=== PATIENT | female | born 1995 | race Caucasian/White ===

== ENCOUNTER 2020-09-05 11:21 | Outpatient (REF) | payer OTHER, MEDICAID, SELFPAY | END 2020-09-05 11:22 | disposition home or self-care (01) | LOC: HO.LAB 11:21 | PROVIDERS: Visit Provider Internal Medicine | DX: Z20.822 Contact with and (suspected) exposure to COVID-19 (principal) | CPT/HCPCS: 36415; C9803; U0003 ==

== ENCOUNTER 2021-12-10 09:09 | Outpatient (REF) | payer OTHER, MEDICAID, SELFPAY ==
[2021-12-10 10:32] LABS: MANUAL DIFF FLAG NO
[2021-12-10 10:35] LABS: Basophils Absolute Auto 0.1 X10*3/uL (0.0-0.2); Basophils Percent Auto 0.9 % (0-2); Eosinophils Absolute Auto 0.5 X10*3/uL (0.0-0.4); Hematocrit 41.3 % (37.0-47.0); Lymphocytes Absolute Auto 1.9 X10*3/uL (1.2-4.9); Lymphocytes Percent Auto 32.7 % (20-40); Mean Corpuscular HGB Conc 31.5 g/dl (31.0-35.0); Mean Corpuscular Hemoglobin 27.3 pg (27.0-33.0); Mean Corpuscular Volume 86.6 fL (80.0-98.0); Mean Platelet Volume 11.1 fL (9.4-12.3); Monocytes Absolute Auto 0.4 X10*3/uL (0.1-1.2); Monocytes Percent Auto 6.7 % (2-11); Neutrophils Absolute Auto 2.9 x10*3/uL (2.0-8.3); Neutrophils Percent Auto 51.7 % (45-73); Platelet Count 235 X10*3/uL (160-400); Red Blood Count 4.77 X10*6/uL (4.20-5.50); Red Cell Distribution Width 13.6 % (11.0-16.0); White Blood Count 5.7 X10*3/uL (4.8-10.8)
[2021-12-10 10:48] LABS: Alanine Aminotransferase 14 U/L (0-31); Albumin Level 4.4 g/dL (3.5-5.0); Alkaline Phosphatase 53 U/L (39-117); Anion Gap 12 (12-20); Aspartate Amino Transferase 17 U/L (5-31); Bilirubin Total 0.5 mg/dL (0.0-1.0); Blood Urea Nitrogen 15 mg/dL (9-16); Calcium 9.4 mg/dL (8.4-10.2); Carbon Dioxide 27 mmol/L (22-29); Chloride 109 mmol/L (96-108); Cholesterol 185 mg/dL; Estimated Glomerular Filt Rate > 60; Glucose Fasting 78 mg/dL (60-99); HDL Cholesterol 65 mg/dL; LDL Cholesterol Calculated 113 mg/dl; Potassium 4.6 mmol/L (3.3-5.1); Sodium 143 mmol/L (135-145); Total Protein 7.4 g/dL (6.5-8.0); Triglycerides 37 mg/dL
[2021-12-10 11:06] LABS: TSH reflex Free T4 0.64 uIU/mL (0.32-4.0)
== END 2021-12-10 09:10 | disposition home or self-care (01) ==
LOC: HO.WFDLDS 09:09
PROVIDERS: Visit Provider Family Medicine
DX: Z00.00 Encounter for general adult medical examination without abnormal findings (principal)
CPT/HCPCS: 36415; 80053; 80061; 84443; 85025

== ENCOUNTER 2023-09-02 15:57 | Outpatient (AMB) | payer OTHER, SELFPAY ==
--- NOTE | 2023-09-02 16:02 | MHC.PC.OV ---
Vital Signs 09/02/23 16:03 09/02/23 16:06 Height 4 ft 9 in Weight 100 lb BMI 21.6 BMI Reason not done Patient refused/unable Pulse 69 69 Pulse Source Pulse Oximeter Pulse Oximetry (%) 92 Oxygen Delivery Method Room Air Comment I was unable to get most of patient's vitals, due to she moves around too m Intake Visit Reasons: Extended exam with f/u labs and health maint. Intake Note: Patient is here for extended exam today. Allergies No Known Allergies Allergy (Verified 11/17/22 16:17) Tobacco use date assessed: 05/20/22 HPI Extended exam with f/u labs and health maint. HPI Details 28 y/o female presents for an extended exam with f/u labs. No recent labs to review. 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 [facility] Social History (Updated 05/19/21 @ 10:03 by Karen Gr) Patient Tobacco Use Status: Never used Tobacco e-Cigarette/Vaping Use: Never Used Second Hand Smoke Exposure: No service: No Current occupational status: disabled Current occupational exposures/hazards: No Questionnaire PAULINA-7 AMB Questionnaire PAULINA-7 Date PAULINA - 7 assessed: 05/20/22 Source: Developed by Drs. Slava Nesbitt, Alyx Barragan, Loyd Montesinos and colleagues, with an educational celso from [employer]. Review of Systems Const Denies chills, Denies fatigue, Denies fever(s), Denies headache(s) and Denies weakness Eyes Denies change in vision ENT Denies dizziness, Denies headache(s), Denies hearing loss, Denies nasal congestion, Denies sinus pain, Denies sinus pressure and Denies sore throat Card Denies chest pain, Denies lightheadedness, Denies dyspnea and Denies other (palpitations) Resp Denies cough, Denies dyspnea and Denies wheezing GI Denies abdominal pain, Denies melena, Denies hematochezia, Denies change in bowel habits, Denies dyspepsia and Denies nausea Denies hematuria and Denies dysuria Musc Denies abnormal gait, Denies myalgias, Denies arthralgias, Denies numbness and Denies tingling Skin/Breast Denies rash, Denies unusual bruising and Denies wounds Neuro Denies abnormal gait, Denies dizziness, Denies headache(s), Denies memory loss, Denies numbness, Denies Sensory deficit (Neuro), Denies tingling and Denies weakness Psych Denies anxiety, Denies depression and Denies memory loss Endo Denies cold intolerance, Denies fatigue, Denies heat intolerance, Denies polydipsia and Denies polyuria Oscar/Lymph Denies easy bleeding and Denies easy bruising Aller/Immun Denies wheezing Physical exam (Primary Care) Vital Signs: Last Vital Signs Pulse 69 09/02/23 16:06 Pulse Ox 92 09/02/23 16:03 Oxygen Delivery Method Room Air 09/02/23 16:03 BMI result Body Mass Index 21.6 Tobacco/Smoking Status: Tobacco use Status Tobacco use date assessed 05/20/22 09/02/23 16:04 Patient Tobacco Use Status Never used Tobacco 09/02/23 16:04 e-Cigarette/Vaping Use Never Used 09/02/23 16:04 Const General: no acute distress, well developed, alert and awake Nutritional Appearance: well nourished Orientation/consciousness: patient oriented x3 HENMT Head: Yes normocephalic and Yes atraumatic Ears: hearing grossly normal bilaterally and TM's normal bilaterally General nose exam: Normal external nose present and Normal nares present Mouth: Normal oral and palatal mucosa present and moist mucous membranes Teeth and gingiva: dentition normal Throat: Yes posterior oropharynx normal Eyes General: appearance normal, both eyes and all related structures Pupils: Equal, round and reactive pupils present and Pupil accommodation reflex normal EOM: EOMs intact bilaterally Neck Neck: Yes normal visual inspection, Yes no lymphadenopathy and Yes trachea midline Thyroid: Thyroid normal Carotids: no bruits Lymphatic: no lymphadenopathy noted Chest Chest palpation & inspection: normal inspection of the chest Resp Effort & Inspection: normal respiratory effort Auscultation: clear to auscultation bilaterally Cardio Rate: regular rate Rhythm: regular rhythm Heart sounds: S1 normal heart sound present, S2 normal heart sound present, no gallops, no murmurs and no rubs Bruits: no abdominal aortic bruits and no carotid bruits GI Palpation (GI): No Abdominal aortic bruit present, Soft to palpation, nontender, No hepatosplenomegaly present and No Rebound tenderness present Auscultation: normal bowel sounds General: Yes no CVA tenderness Back/Spine/Pelvis Other: Mild scoliosis Back: no CVA tenderness Cervical Spine: cervical ROM normal and No Cervical spine tenderness Thoracic/Lumbar Spine: thoraco-lumbar ROM normal, No pain with thoraco-lumbar ROM, No thoracic spinal tenderness and No lumbar spinal tenderness Skin Lesions: no lesions Rashes: no rashes Trauma: no lacerations or abrasions Wounds: no wounds Nails: normal Neuro Other: Nonverbal. Spastic quadriplegia. Sitting in wheelchair. General: patient oriented x3 and No gait normal Cranial nerves: Yes Equal, round and reactive pupils present Cognition (Neuro): normal cognition Gait exam (Neuro): gait abnormal and Assisted gait required Gait assisted method: wheelchair bound Motor exam (neuro): strength not 5/5 throughout Sensory Exam: No Sensory deficit (Neuro) Deep tendon reflexes (DTR's): Right patellar reflex intensity grade: 2+ and Left patellar reflex intensity grade: 2+ Extrem General: Yes normal to inspection and No edema Psych Appearance: grossly normal Affect: normal affect Attitude: cooperative Thought process: Normal thought process present Assessment and Plan Assessment & Plan (1) Cerebral palsy: Code(s): G80.9 - Cerebral palsy, unspecified Plan: Stable (2) Mild scoliosis: Code(s): M41.9 - Scoliosis, unspecified Plan: Stable.??No?worsening?angulation (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 Stable (5) Screening for cervical cancer: Code(s): Z12.4 - Encounter for screening for malignant neoplasm of cervix Plan: Patient?had Pap?smear?done?under?general?anesthesia?by?[facility]?supervisor paint roller covers Negative?for?her?squamous?intraepithelial?lesions?or?HPV. Follow-up?every?5?years (6) Screening for breast cancer: Code(s): Z12.39 - Encounter for other screening for malignant neoplasm of breast Plan: During?her?procedure?for?Pap?smear?under?general?anesthesia,?a?breast?exam?was?performed?as?well?and?was?within?normal?limits. (7) Encounter for general adult medical examination without abnormal findings: Code(s): Z00.00 - Encounter for general adult medical examination without abnormal findings Plan: 28-year-old?female?with?spastic?quadriplegia?and?cerebral?palsy?presents?with?mom?for?an?extended?exam Doing?well?today?and?exam?is?stable?with?no?new?concern Ordered?labs?which?they?can?get?done?fasting?at?their?convenience?and?we?can?review?these?by?telemedicine Orders: Orders Comprehensive [place]. Panel Fast Today Z00.00 - Encounter for general adult medical examination without abnormal findings Complete Blood Count Auto Diff Today Z00.00 - Encounter for general adult medical examination without abnormal findings Lipid Panel Today Z00.00 - Encounter for general adult medical examination without abnormal findings TSH reflex Free T4 Today Z00.00 - Encounter for general adult medical examination without abnormal findings UA and rflx microscopic Today Z00.00 - Encounter for general adult medical examination without abnormal findings Vitamin B12 and Folate Today E53.8 - Deficiency of other specified B group vitamins Hemoglobin A1c Today R73.01 - Impaired fasting glucose Microalbumin, Random (w Creat) Today I10 - Essential (primary) hypertension Vitamin D 25-OH Total Today E55.9 - Vitamin D deficiency, unspecified Coding Level of Care Code Est Pt Level 4 (04344) Diagnoses Cerebral palsy G80.9 Mild scoliosis M41.9 Spastic quadriplegia G82.50 Nonverbal R47.01 Screening for cervical cancer Z12.4 Screening for breast cancer Z12.39 Encounter for general adult medical examination without abnormal findings Z00.00
[2023-09-02 16:03] VITALS: PULSE 69; O2SAT 92; BMI 21.6
[2023-09-02 16:06] VITALS: PULSE 69
== END 2023-09-02 16:29 | disposition home or self-care (01) ==
PROVIDERS: PCP Family Medicine; Visit Provider Family Medicine
DX: G80.9 Cerebral palsy, unspecified (principal); M41.9 Scoliosis, unspecified; R47.01 Aphasia; Z12.4 Encounter for screening for malignant neoplasm of cervix; Z12.39 Encounter for other screening for malignant neoplasm of breast; Z00.00 Encounter for general adult medical examination without abnormal findings
CPT/HCPCS: 99214

== ENCOUNTER 2024-12-17 08:15 | Outpatient (AMB) | payer OTHER, SELFPAY ==
--- NOTE | 2024-12-17 08:30 | A.OFFPC_ITS ---
Vital Signs 12/17/24 08:37 Height 4 ft 11 in BMI Reason not done Patient refused/unable BP 110/68 Blood Pressure Location Lt brachial Intake Visit Reasons: f/u chronic conditions Intake Note: Follow up Managing Jeweler Required: No Allergies No Known Allergies Allergy (Verified 12/17/24 08:33) Medication List - Last Reconciled 12/17/24 by Demetrius Cottrell MD glycerin (adult) (Fleet Glycerin (Adult) rectal suppository) 1 supp NM DAILY PRN miscellaneous medical supply AFO, Bilateral, Daily As directed. 999 days. 1 Pair miscellaneous medical supply Wheelchair. Daily As directed. 999 days. Tobacco use date assessed: 12/17/24 Dental Screening Dental Screen Date: 12/17/24 Did you have a dental visit in the last 12 months?: Yes Did you have a dental problem in the last 6 months where you did not have access to dental care?: No Was dental information given to patient?: Patient has dentist HPI f/u chronic conditions HPI Details Patient?presents?with?mom.??She?is?nonverbal. Mom?has?video?of?patient?having?convulsion-like/seizure-like?activity. She?says?this?recurs?randomly. Unclear?what?is?triggering?this. Patient?reorient?with?contact/touch. Patient?used?to?have?seizures?as?a?young?child.??Also?had?neurologist?but?no?jamila alice?does. [facility] Social History (Updated 05/19/21 @ 10:03 by Metabar) Housing: House (with parents and brother) Patient Tobacco Use Status: Never used Tobacco e-Cigarette/Vaping Use: Never Used Second Hand Smoke Exposure: No service: No Current occupational status: disabled Current occupational exposures/hazards: No Cognitive needs: Yes (Needs care 24/03) Hearing needs: No Vision needs: Yes (Having trouble finding eye doctor in the area. Lazy right eye.) Questionnaire PHQ-9 Over the last 2 weeks, how often have you been bothered by any of the following problems? 1. Little interest or pleasure in doing things: not at all 2. Feeling down, depressed, or hopeless: not at all 3. Trouble falling or staying asleep, or sleeping too much: not at all 4. Feeling tired or having little energy: not at all 5. Poor appetite or overeating: not at all 6. Feeling bad about yourself - or that you are a failure or have let yourself or your family down: not at all 7. Trouble concentrating on things, such as reading the newspaper or watching television: nearly every day 8. Moving or speaking so slowly that other people could have noticed. Or the opposite - being so fidgety or restless that you have been moving around a lot more than usual: nearly every day 9. Thoughts that you would be better off or of hurting yourself in some way: not at all Total score: 6 Depression Screening Interpretation: Positive Depression Screening Done: Yes 51128 - PHQ-9 Billing: Yes Source: Developed by Drs. Slava Nesbitt, Alyx Barragan, Loyd Montesinos and colleagues, with an educational celso from [employer]. Thrive Questionnaire Date Thrive assessed: 12/12/24 I am a: Patient What is your living situation today?: I have a steady place to live Within the past 12 months, did the food you bought not last and you didn't have the money to get more?: Never true Within the past 12 months, did you worry whether your food would run out before you got money to buy more?: Never true Do you have trouble paying for medicines?: No Do you have trouble getting transportation to medical appointments?: No Do you have trouble paying your heating and electricity bill?: No Do you have trouble taking care of your child, family member or friend?: I choose not to answer this question Do you have trouble with day-to-day activities such as bathing, preparing meals, shopping, managing finances, etc.?: I choose not to answer this question Are you currently unemployed and looking for a job?: I choose not to answer this question Are you interested in more education?: I choose not to answer this question THRIVE Score: 0 AUDIT C Alcohol Use Questionnaire (AUDIT-C) 1. How often do you have a drink containing alcohol?: Never Total Score: 0 PAULINA-7 AMB Questionnaire PAULINA-7 Date PAULINA - 7 assessed: 12/17/24 Feeling nervous, anxious, or on edge: 0 = Not at all Not being able to stop or control worryin = Not at all Worrying too much about different things: 0 = Not at all Trouble relaxin = Not at all Being so restless that it is hard to sit still: 0 = Not at all Becoming easily annoyed or irritable: 1 = Several days Feeling afraid as if something awful might happen: 0 = Not at all Total PAULINA-7 score (0-4 normal; 5-9 mild; 10-14 moderate; 15-21 severe): 1 Source: Developed by Drs. Slava Nesbitt, Alyx Barragan, Loyd Montesinos and colleagues, with an educational celso from [employer]. PAULINA-7 Assessment Billing PAULINA-7 Assessment Tool: PAULINA-7 Assessment 99694 Review of Systems Const Denies chills, Denies fatigue, Denies fever(s), Denies headache(s) and Denies weakness ENT Denies dizziness and Denies headache(s) Card Denies dyspnea Resp Denies cough, Denies dyspnea, Denies wheezing and Denies other ( shortness of breath) Musc Denies numbness and Denies tingling Neuro Details: See?HPI Denies dizziness, Denies headache(s), Denies numbness, Denies tingling, Denies paresthesias and Denies weakness Psych Denies anxiety and Denies depression Endo Denies fatigue Aller/Immun Denies wheezing Physical exam (Primary Care) Vital Signs: Last Vital Signs BP 110/68 12/17/24 08:37 Tobacco/Smoking Status: Tobacco use Status Tobacco use date assessed 12/17/24 12/17/24 08:41 Patient Tobacco Use Status Never used Tobacco 12/17/24 08:31 e-Cigarette/Vaping Use Never Used 12/17/24 08:31 PHQ-9: PHQ-9 Score PHQ-9: Total score 6 12/17/24 08:41 Depression Screening Interpretation: Positive Thrive Assessment: Date of Thrive Assessment Date Thrive assessed 12/12/24 12/17/24 08:31 Const General: no acute distress and well developed Nutritional Appearance: well nourished Orientation/consciousness: patient oriented x3 HENMT Head: Yes normocephalic and Yes atraumatic Eyes General: appearance normal, both eyes and all related structures Pupils: Equal, round and reactive pupils present EOM: EOMs intact bilaterally Resp Effort & Inspection: normal respiratory effort Neuro Other: Wheelchair-bound Spastic?quadriplegia General: patient oriented x3 Cranial nerves: Yes Equal, round and reactive pupils present Psych Affect: normal affect Coding Level of Care Code Est Pt Level 3 (33878) Diagnoses Cerebral palsy G80.9 Convulsions R56.9 Additional Codes PAULINA-7 Assessment Billing - PAULINA-7 Assessment Tool: PAULINA-7 Assessment 88036 ([id number]) PHQ-9 - 57786 - PHQ-9 Billing: Yes ([id number]) Assessment & Plan Assessment & Plan (1) Cerebral palsy: Code(s): G80.9 - Cerebral palsy, unspecified Category: Medical (2) Convulsions: Code(s): R56.9 - Unspecified convulsions Category: Medical Plan 29-year-old?female?with?cerebral?probably,?spastic?quadriplegia?and?nonverbal. Now?displaying?new?convulsion?like?activity. Unclear?if?these?are?seizures?as?she?seems?to?immediately?reorient with touch/contact. Will?refer?to?Neurology Also?checking?labs?and?will?review?by?telemedicine?a?couple?of?weeks. Orders: Orders Comprehensive [place]. Panel Fast Today Z00.00 - Encounter for general adult medical examination without abnormal findings Lipid Panel Today Z00.00 - Encounter for general adult medical examination without abnormal findings Vitamin D 25-OH Total Today E55.9 - Vitamin D deficiency, unspecified Complete Blood Count Auto Diff Today Z00.00 - Encounter for general adult medical examination without abnormal findings TSH reflex Free T4 Today Z00.00 - Encounter for general adult medical examination without abnormal findings Vitamin B12 and Folate Today E53.8 - Deficiency of other specified B group vitamins Referrals Neurology Referral G80.9 - Cerebral palsy, unspecified, G82.50 - Quadriplegia, unspecified, R47.01 - Aphasia, R56.9 - Unspecified convulsions
[2024-12-17 08:37] VITALS: BP 110/68
== END 2024-12-17 08:57 | disposition home or self-care (01) ==
LOC: HO.HMCFM 08:15
PROVIDERS: PCP Family Medicine; Visit Provider Family Medicine
DX: G80.9 Cerebral palsy, unspecified (principal); R56.9 Unspecified convulsions

== ENCOUNTER → 2024-12-17 08:15 | Outpatient (BNVA) | payer OTHER, SELFPAY | PROVIDERS: PCP Family Medicine; Visit Provider Family Medicine | DX: Z13.89 Encounter for screening for other disorder (principal) | CPT/HCPCS: 96127; 99212 ==

== ENCOUNTER 2024-12-17 09:06 | Outpatient (REF) | payer OTHER, SELFPAY ==
--- OUTSIDE RECORDS SUMMARY | 2024-12-17 09:16 | XMS_ITS | Encounter Summary ---
Author Organization [facility] Address [address] [place] [address] Phone Care Team Providers Care Distributor Advertising Material Name Role Phone Alexus Johnson MD Primary Care Provider Encounter Details Date Type Department Care Team (Late st Contact Info) Description 04/14/2017 Conversion Encounter [facility] [place] [address] [place] [address] Social History Tobacco Use Types Packs/Day Years Used Date Smoking Tobacco: Never Comments:Never smoker Comments Unknown Sex and Gender Information Value Date Recorded Sex Assigned at Not on file Legal Sex Female 4:56 PM EDT Gender Identity Not on file Sexual Orientation Not on file documented as of this encounter Plan of Treatment Not on file documented as of this encounter Visit Diagnoses Not on filedocumented in this encounter Care Teams Distributor Advertising Material Relationship Specialty Start Date End Date Alexus Johnson MD [address] [place] [address] PCP - General 04/08/17 12/06/22 documented as of this encounter
--- OUTSIDE RECORDS SUMMARY | 2024-12-17 09:16 | XMS_ITS | Encounter Summary ---
Author Organization [facility] Address [address] [place] [phone] Phone Care Team Providers Care Die Machine Operator Name Role Phone Alexus Johnson MD Primary Care Provider Encounter Details Date Type Department Care Team (Late st Contact Info) Description 04/13/2013 Documentation [facility] [place] [address] [place], [place] [phone] Family Medicine, Physician [address] [place], [place] [phone] Social History Tobacco Use Types Packs/Day Years Used Date Smoking Tobacco: Never Assessed Comments Unknown Sex and Gender Information Value Date Recorded Sex Assigned at Not on file Legal Sex Female 4:56 PM EDT Gender Identity Not on file Sexual Orientation Not on file documented as of this encounter Plan of Treatment Not on file documented as of this encounter Visit Diagnoses Not on filedocumented in this encounter Care Teams Die Machine Operator Relationship Specialty Start Date End Date Alexus Johnson MD [address] [place] [address] [place] [id number] PCP - General 04/08/17 12/06/22 documented as of this encounter
--- OUTSIDE RECORDS SUMMARY | 2024-12-17 09:16 | XMS_ITS | Encounter Summary ---
Author Organization [facility] Address [address] [place] [phone] Phone Care Team Providers Care Welder Manufacture Name Role Phone Alexus Johnson MD Primary Care Provider Encounter Details Date Type Department Care Team (Late st Contact Info) Description 04/13/2013 Documentation [facility] [place] [address] [place], [place] [phone] Family Medicine, Physician [address] [place], [place] [phone] Social History Tobacco Use Types Packs/Day Years [...] on filedocumented in this encounter Care Teams Welder Manufacture Relationship Specialty Start Date End Date Alexus Johnson MD [address] [place] [address] [place] [id number] PCP - General 04/08/17 12/06/22 documented as of this encounter
--- OUTSIDE RECORDS SUMMARY | 2024-12-17 09:16 | XMS_ITS | Clinical Summary ---
Author Organization [facility] Address [address] [place] [phone] Phone Care Team Providers Care Business Development Representative Name Role Phone Unavailable Primary Care Provider Unavailabl e Immunizations Immunization Administration Dates Next Due DTP 09/20/1995, 5,1994, 994 DTaP 5 03/20/1999 HPV, Quadrivalent 09/28/2013,05/28/2013,01/06/20 13 Hep A, Adult 12/26/2014 Hep B, ped/adol 1994,1994,1994 Hib (PRP-T) 06/22/1995, 5,1994, 994 IPV 03/20/1999, 6,1994, 994,1994 Influenza Split 05/28/2013, 2,07/05/2011, 010 Influenza, injectable, quadrivalent 06/27/2014 Influenza, injectable, trivalent 009,06/21/2008,06/19/2007, 006,06/18/2005,06/25/2004,08/12/2003 MMR 05/30/2000,06/22/1995 Meningococcal Conj (Menactra) MCV4P 02/17/2007 Tdap 07/15/2006 Varicella 11/28/2009,04/03/1996 Zoster 06/27/2014 Family History Relation Name Status Comments Brother Alive Brother: Alive and well, ADD/ADHD Father Alive Father: ADD/ADH D Mother Alive Mother: Alive a nd well Other Family history of Cancer, breast, Family history of Seizure disorder, Family history of Hyperlipidemia, Family history of Sudden /NE under age 55 Paternal Grandfather Buck naranjo grandfather: Cancer -lymphoma Paternal Grandmother Buck naranjo grandmother: Multiple sclerosis Social History Tobacco Use Types Packs/Day Years Used Date Smoking Tobacco: Never Comments:Never smoker Comments Unknown Sex and Gender Information Value Date Recorded Sex Assigned at Not on file Legal Sex Female 4:56 PM EDT Gender Identity Not on file Sexual Orientation Not on file Last Filed Vital Signs Vital Sign Reading Time Taken Comments Blood Pressure 112/70 12/26/2014 12:00 AM EDT Pulse 82 12/26/2014 12:00 AM EDT Temperature 36.4 ??C (97.6 ??F) 03/11/2015 12:00 AM E DT Respiratory Rate - - Oxygen Saturation 97% 02/13/2010 12:00 AM EDT Inhaled Oxygen Concentration - - Weight 47.2 kg (104 lb) 12/26/2014 12:00 AM EDT Height 143.5 cm (4' 8.5 ) 12/29/2012 12:00 AM ED T Body Mass Index 22.91 12/29/2012 12:00 AM EDT Plan of Treatment Health Maintenance Due Date Last Done Comments DTaP,Tdap,and Td Vaccines (7 - Td or Tdap) 07/15/2016 07/15/2006, 03/20/1999, 09/20/1995, Additional history exists Influenza Vaccines (#1) 2024 06/27/20 14, 05/28/2013, 05/11/2012, Additional history exists COVID-19 Vaccine ( season) 2024 Hepatitis B Vaccines Completed 1994, 1994, 1994 HIB Vaccines Completed 06/22/1995, 08/31, 1994, Additional history exists IPV Vaccines Completed 03/20/1999, 08/30, 1994, Additional history exists MMR Vaccines Completed 05/30/2000, 06/22/1995 Meningococcal Vaccine Aged Out 02/17/2007 No jamila alice eligible based on patient's age to complete this topic HPV Vaccines Completed 09/28/2013, 05/01, 01/05/2013 Varicella Vaccines Completed 06/27/2014, 0 11/28/2009, 04/03/1996 Hepatitis A Vaccines Aged Out 12/26/2014 No long er eligible based on patient's age to complete this topic Men B Vaccine Aged Out No longer elig ible based on patient's age to complete this topic Pneumococcal Vaccine Aged Out No long er eligible based on patient's age to complete this topic
--- OUTSIDE RECORDS SUMMARY | 2024-12-17 09:16 | XMS_ITS | Encounter Summary ---
Author Organization [facility] Address [address] [place] [phone] Phone Care Team Providers Care Tank Riveter Name Role Phone Alexus Johnson MD Primary Care Provider Encounter Details Date Type Department Care Team (Late st Contact Info) Description 08/16/2012 Documentation [facility] [place] Family Medicine [address] [place], [place] [phone] Family Medicine, Physician [address] [place], [place] [phone] Social History Tobacco Use Types Packs/Day Years [...] on filedocumented in this encounter Care Teams Tank Riveter Relationship Specialty Start Date End Date Alexus Johnson MD [address] [place] [address] [place] [id number] PCP - General 04/08/17 12/06/22 documented as of this encounter
--- OUTSIDE RECORDS SUMMARY | 2024-12-17 09:16 | XMS_ITS | Encounter Summary ---
Author Organization [facility] Address [address] [place] [address] Phone Care Team Providers Care Veterinary Medicine Teacher Name Role Phone Alexus Johnson MD Primary Care Provider Encounter Details Date Type Department Care Team (Late st Contact Info) Description 10/29/2011 Documentation [facility] [place] [address] [place], [place] [phone] Family Medicine, Physician [address] [place], [place] [phone] Social History Tobacco Use Types Packs/Day Years [...] on filedocumented in this encounter Care Teams Veterinary Medicine Teacher Relationship Specialty Start Date End Date Alexus Johnson MD [address] [place] [address] [place] [phone] PCP - General 04/08/17 12/06/22 documented as of this encounter
--- OUTSIDE RECORDS SUMMARY | 2024-12-17 09:16 | XMS_ITS | Encounter Summary ---
Author Organization [facility] Address [address] [place] [address] Phone Care Team Providers Care Hydration Plant Operator Name Role Phone Alexus Johnson MD Primary Care Provider Encounter Details Date Type Department Care Team (Late st Contact Info) Description 06/28/2011 Documentation [facility] [place] [address] [place], [place] [phone] Family Medicine, Physician [address] [place], [place] [phone] Social History Tobacco Use Types Packs/Day Years [...] on filedocumented in this encounter Care Teams Hydration Plant Operator Relationship Specialty Start Date End Date Alexus Johnson MD [address] [place] [address] [place] [id number] PCP - General 04/08/17 12/06/22 documented as of this encounter
[2024-12-17 10:55] LABS: MANUAL DIFF FLAG NO
[2024-12-17 11:00] LABS: Basophils Absolute Auto 0.1 X10*3/uL (0.0-0.2); Basophils Percent Auto 1.4 % (0-2); Eosinophils Absolute Auto 0.3 X10*3/uL (0.0-0.4); Eosinophils Percent Auto 5.5 % (0-4); Hematocrit 39.7 % (37.0-47.0); Hemoglobin 12.4 g/dl (12.0-16.0); Imm Gran Abs Auto 0.01 X10*3/uL (0.00-0.03); Imm Gran Pct Auto 0.2 % (0.0-0.4); Lymphocytes Absolute Auto 2.3 X10*3/uL (1.2-4.9); Mean Corpuscular HGB Conc 31.2 g/dl (31.0-35.0); Mean Corpuscular Hemoglobin 27.3 pg (27.0-33.0); Mean Corpuscular Volume 87.3 fL (80.0-98.0); Mean Platelet Volume 11.3 fL (9.4-12.3); Monocytes Absolute Auto 0.3 X10*3/uL (0.1-1.2); Monocytes Percent Auto 6.5 % (2-11); Neutrophils Absolute Auto 2.1 x10*3/uL (2.0-8.3); Neutrophils Percent Auto 40.4 % (45-73); Platelet Count 252 X10*3/uL (160-400); Red Blood Count 4.55 X10*6/uL (4.20-5.50); Red Cell Distribution Width 13.6 % (11.0-16.0); White Blood Count 5.1 X10*3/uL (4.8-10.8)
[2024-12-17 11:18] LABS: Alanine Aminotransferase 20 U/L (0-31); Albumin Level 4.3 g/dL (3.5-5.0); Alkaline Phosphatase 57 U/L (39-117); Anion Gap 11 (12-20); Aspartate Amino Transferase 21 U/L (5-31); Bilirubin Total 0.4 mg/dL (0.0-1.0); Blood Urea Nitrogen 15 mg/dL (9-16); Carbon Dioxide 28 mmol/L (22-29); Chloride 108 mmol/L (96-108); Cholesterol 172 mg/dL (<200); Estimated Glomerular Filt Rate > 60; Glucose Fasting 81 mg/dL (60-99); HDL Cholesterol 65 mg/dL (>40); LDL Cholesterol Calculated 98 mg/dL (<100); Potassium 3.7 mmol/L (3.3-5.1); Sodium 143 mmol/L (135-145); Triglycerides 48 mg/dL (<150)
[2024-12-17 11:36] LABS: TSH reflex Free T4 0.82 uIU/mL (0.32-4.0); Vitamin D 25-OH Total 40.5 ng/mL (>30)
[2024-12-17 11:44] LABS: Folate 11.3 ng/mL (> or = 4.0); Vitamin B12 476 pg/mL (200-900)
== END 2024-12-17 09:07 | disposition home or self-care (01) ==
LOC: HO.WFDLDS 09:06
PROVIDERS: Visit Provider Family Medicine
DX: Z00.00 Encounter for general adult medical examination without abnormal findings (principal); E55.9 Vitamin D deficiency, unspecified; E53.8 Deficiency of other specified B group vitamins
CPT/HCPCS: 36415; 80053; 80061; 82306; 82607; 82746; 84443; 85025; 96127; 99212

== ENCOUNTER 2025-01-02 11:14 | Outpatient (AMB) | payer OTHER, SELFPAY ==
--- NOTE | 2025-01-02 11:17 | A.OFFPC_ITS ---
Intake Visit Reasons: f/u Labs Plug Wirer Required: No Allergies No Known Allergies Allergy (Verified 01/02/25 11:18) Tobacco use date assessed: 12/17/24 Dental Screening Dental Screen Date: 12/17/24 HPI f/u Labs HPI Details 29 y/o female presents to f/u labs via [employer]. Pt has had convulsive-like activity - ensuring they have an appt. for Neurology. Labs drawn 12/17/24. Reviewed labs with pt's mother. Triglycerides 48. TC 172. LDL 98. HDL 65. Vitamin D 40.5. Her labs are fine. HPI Comments History of Present Illness Details Documentation assistance for Demetrius Cottrell MD, was provided by Kieran Saunders,? [employer] on 01/02/2025 at 12:50 PM EST. I, Dr. Cottrell, have read, observed, and verified documentation. ? PFSH Social History (Updated 05/19/21 @ 10:03 by [email or web address]) Housing: House (with parents and brother) Patient Tobacco Use Status: Never used Tobacco e-Cigarette/Vaping Use: Never Used Second Hand Smoke Exposure: No service: No Current occupational status: disabled Current occupational exposures/hazards: No Cognitive needs: Yes (Needs care 24/03) Hearing needs: No Vision needs: Yes (Having trouble finding eye doctor in the area. Lazy right eye.) Questionnaire Thrive Questionnaire Date Thrive assessed: 12/12/24 PAULINA-7 AMB Questionnaire PAULINA-7 Date PAULINA - 7 assessed: 12/17/24 Source: Developed by Drs. Slava Nesbitt, Alyx Barragan, Loyd Montesinos and colleagues, with an educational celso from [employer]. Review of Systems Const Denies chills, Denies fatigue, Denies fever(s), Denies headache(s) and Denies weakness ENT Denies dizziness and Denies headache(s) Card Denies dyspnea Resp Denies cough, Denies dyspnea, Denies wheezing and Denies other (shortness of breath) Musc Denies numbness and Denies tingling Neuro Denies dizziness, Denies headache(s), Denies numbness, Denies tingling and Denies weakness Psych Denies anxiety and Denies depression Endo Denies fatigue Aller/Immun Denies wheezing Physical exam (Primary Care) Tobacco/Smoking Status: Tobacco use Status Tobacco use date assessed 12/17/24 01/02/25 11:19 Patient Tobacco Use Status Never used Tobacco 01/02/25 11:19 e-Cigarette/Vaping Use Never Used 01/02/25 11:19 Thrive Assessment: Date of Thrive Assessment Date Thrive assessed 12/12/24 01/02/25 11:19 Telehealth Telehealth Telehealth Platform: Telephone Location of provider rendering services: practice address Location of patient: address on file Patient Identification confirmed using: Name, : Yes Telehealth method: voice only Patient verbally consented to treatment: Yes Patient verbally consented to billing insurance company: Yes Patient informed of any privacy concerns related to visit: Yes Minutes spent on Phone/Video with Pt.: 15 Coding Level of Care Code Tele Est Pt Level 2 (29828) Diagnoses Convulsions R56.9 Assessment & Plan Assessment & Plan (1) Convulsions: Code(s): R56.9 - Unspecified convulsions Category: Medical Plan: 29-year-old?female?with?cerebral?palsy?and?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 She?seems?quickly?reoriented?with?touch. Reviewed?labs?with?mom.??Lab?work?is?unremarkable. Had?referred?patient?to [facility] ate?neurology?but?mom?says?she?has?not?contacted?yet.??Will?ask?my?office?to work?on?getting?her?scheduled.
--- OUTSIDE RECORDS SUMMARY | 2025-01-02 12:42 | XMS_ITS | Encounter Summary ---
Author Organization [facility] Address [address] [place] [address] Phone Care Team Providers Care Experimental Mechanic [employer] Name Role Phone Alexus Johnson MD Primary Care Provider Encounter Details Date Type Department Care Team (Late st Contact Info) Description 08/16/2012 [place] [facility] [place] [address] [place], [place] [phone] Family Medicine, Physician [address] [place], [place] [phone] Social History Tobacco Use Types Packs/Day Years [...] on filedocumented in this encounter Care Teams Experimental Mechanic Outboard Motors Relationship Specialty Start Date End Date Alexus Johnson MD [address] [place] [address] [place] [id number] PCP - General 04/08/17 12/06/22 documented as of this encounter
--- OUTSIDE RECORDS SUMMARY | 2025-01-02 12:42 | XMS_ITS | Encounter Summary ---
Author Organization [facility] Address [address] [place] [address] Phone Care Team Providers Care Relocation Services Specialist Name Role Phone Alexus Johnson MD Primary Care Provider [phone] Encounter Details Date Type Department Care Team (Late st Contact Info) Description 10/29/2011 Documentation [facility] [place] [address] [place], [place] [phone] Family Medicine, Physician [address] [place], [place] [phone] Social History Tobacco Use Types Packs/Day Years [...] on filedocumented in this encounter Care Teams Relocation Services Specialist Relationship Specialty Start Date End Date Alexus Johnson MD [address] [place] [address] [place] [phone] PCP - General 04/08/17 12/06/22 documented as of this encounter
--- OUTSIDE RECORDS SUMMARY | 2025-01-02 12:42 | XMS_ITS | Clinical Summary ---
Author Organization [facility] Address [address] [place] [address] Phone Care Team Providers Care Oracle Fusion Consultant Name Role Phone Unavailable Primary Care Provider [...] history of Hyperlipidemia, Family history of Sudden /[place] under age 55 Paternal Grandfather Buck naranjo [...]
--- OUTSIDE RECORDS SUMMARY | 2025-01-02 12:42 | XMS_ITS | Encounter Summary ---
Author Organization [facility] Address [address] [place] [address] Phone Care Team Providers Care Paper Tube Machine Operator Name Role Phone Alexus Johnsno MD Primary Care Provider Encounter Details Date Type Department Care Team (Late st Contact Info) Description 04/13/2013 Documentation [facility] [place] [address] [place], [place] [phone] Family Medicine, Physician [address] [place], [place] [phone] Social History Tobacco Use Types Packs/Day Years [...] on filedocumented in this encounter Care Teams Paper Tube Machine Operator Relationship Specialty Start Date End Date Alexus Johnson MD [address] [place] [address] [place] [phone] PCP - General 04/08/17 12/06/22 documented as of this encounter
--- OUTSIDE RECORDS SUMMARY | 2025-01-02 12:42 | XMS_ITS | Encounter Summary ---
Author Organization [facility] Address [address] [place] [address] Phone Care Team Providers Care Maxillofacial Pathology Name Role Phone Alexus Johnson MD Primary Care Provider Encounter Details Date Type Department Care Team (Late st Contact Info) Description 06/28/2011 Documentation [facility] [place] [address] [place], [place] [phone] Family Medicine, Physician [address] [place], [place] [phone] Social History Tobacco Use Types Packs/Day Years [...] on filedocumented in this encounter Care Teams Maxillofacial Pathology Relationship Specialty Start Date End Date Alexus Johnson MD [address] [place] [address] [place] [phone] PCP - General 04/08/17 12/06/22 documented as of this encounter
--- OUTSIDE RECORDS SUMMARY | 2025-01-02 12:42 | XMS_ITS | Encounter Summary ---
Author Organization [facility] Address [address] [place] [address] Phone Care Team Providers Care Laborer Vegetable Farm Name Role Phone Alexus Johnson MD Primary Care Provider Encounter Details Date Type Department Care Team (Late st Contact Info) Description 04/13/2013 Documentation [facility] [place] [address] [place], [place] [phone] Family Medicine, Physician [address] [place], [place] [phone] Social History Tobacco Use Types Packs/Day Years [...] on filedocumented in this encounter Care Teams Laborer Vegetable Farm Relationship Specialty Start Date End Date Alexus Johnson MD [address] [place] [address] [place] [phone] PCP - General 04/08/17 12/06/22 documented as of this encounter
--- OUTSIDE RECORDS SUMMARY | 2025-01-02 12:42 | XMS_ITS | Encounter Summary ---
Author Organization [facility] Address [address] [place] [address] Phone Care Team Providers Care Managing Consultant Name Role Phone Alexus Johnson MD Primary Care Provider Encounter Details Date Type Department Care Team (Late st Contact Info) Description 04/14/2017 Conversion Encounter [facility] [place] [address] [place] [address] Social History Tobacco Use Types Packs/Day Years [...] on filedocumented in this encounter Care Teams Managing Consultant Relationship Specialty Start Date End Date Alexus Johnson MD [address] [place] [address] PCP - General 04/08/17 12/06/22 documented as of this encounter
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
== END 2025-01-02 13:30 | disposition home or self-care (01) ==
LOC: HO.HMCFM 11:14
PROVIDERS: PCP Family Medicine; Visit Provider Family Medicine
DX: R56.9 Unspecified convulsions (principal)

== ENCOUNTER → 2025-01-02 11:14 | Outpatient (BNVA) | payer OTHER, SELFPAY | PROVIDERS: PCP Family Medicine; Visit Provider Family Medicine | DX: Z13.89 Encounter for screening for other disorder (principal) ==

== ENCOUNTER 2025-02-12 09:42 | Outpatient (AMB) | payer OTHER, SELFPAY ==
--- NOTE | 2025-02-12 09:45 | AM.OFFWIN_ITS ---
Intake Vital Signs 02/12/25 09:49 Height 4 ft 11 in BMI Reason not done Patient refused/unable Temp 97.1 F Temp Source Oral Comment unable to do vital do to patient not able to stay still Intake Visit Reasons: swelling in the face/eyes Intake Note: Patient c/o itching eyes, red eyes, not eating, and left rubbing eyes since Tuesday Patient Tobacco Use Status: Never used Tobacco Allergies No Known Allergies Allergy (Verified 02/12/25 10:04) Medication List - Last Reconciled 02/12/25 by EMILY Denis-BC glycerin (adult) (Fleet Glycerin (Adult) rectal suppository) 1 supp [place] DAILY PRN miscellaneous medical supply AFO, Bilateral, Daily As directed. 999 days. 1 Pair miscellaneous medical supply Wheelchair. Daily As directed. 999 days. Do you need a note to return to daycare/school/sports/work: No HPI HPI Comments History of Present Illness Details History - The patient is a 29-year-old female wi th cerebral palsy, nonverbal, here w/ Mom who provides HPI, presenting with facial and ocular swelling with ocular itching and redness. Left eye - Symptoms began on Tuesday, worsening over time. - Nasal discharge is clear; slight cough is non-productive. - Absence of fever with recorded tempera ture of 97.1?F. - Appetite reduced but normal urinary an d bowel patterns maintained. - Recently visited outdoor mont[place]; multip le insect bites noted. - No known drug allergies and no similar symptoms in close contacts. Review of Systems - Eyes: Reports redness and itching, wor se on the left. - Respiratory: Denies productive cough, reports minor dry cough. - Gastrointestinal: Reports loss of appe tite. - Skin: Reports facial swelling and rece nt bug bites. - Constitutional: Denies fever, normal u rinary and bowel patterns reported. - Others: Denies contact with sick indiv iduals. Physical Exam General: Awake, alert. No apparent distress Eyes: Left conjunctival injection, mild upper and lower lid edema, no drainage, Right conjunctiva clear, no lid edema, rubbing L eye during exam Nose: Nares patent, turbinates within normal limits, Ears: Tympanic membranes intact and clear bilaterally Throat: Moist mucosa membrane, pharynx within normal limits Cardiovascular: Regular rate and rhythm Respiratory: Clear to auscultation bilaterally Discussion Notes I discussed with the patient that her symptoms are consistent with conjunctivitis, potentially environmental allergens. Mentioned the importance of treating both eyes to prevent spreading. Children?s Benadryl was discussed as an option until Zyrtec can be obtained. I recommended frequent handwashing to prevent spreading the conjunctivitis. There was a discussion regarding eye drops being prescribed to alleviate the pink eye symptoms. We also talked about returning for follow-up if symptoms persist or worsen. Assessment and Plan 1. Conjunctivitis - Prescribed antibiotic eye drops. - Advise good hygiene to prevent spreadi ng. 2. Allergies - Administer Benadryl; consider switchin g to Zyrtec. - Monitor symptoms; reduce exposure to a llergens. Patient Instructions - Apply prescribed eye drops in both eye s four times daily for five days. - Maintain hand hygiene to prevent the s pread of infection. - Administer Children's Benadryl as dire cted for allergies. - Consider switching to Zyrtec for critical access hospital allergy control. - Monitor for any worsening symptoms or new developments. Consent Patient was informed and verbally consented to the use of an ambient scribe for clinic note documentation during this visit. Total time spent caring for the patient today was 30 minutes. This includes time spent before the visit reviewing the chart, time spent during the visit, and time spent after the visit on documentation, reviewing laboratory results, diagnostic imaging, medications, performing a medically necessary evaluation, counseling on diagnoses, care coordination, ordering appropriate tests, ordering appropriate medications, review of tests performed by other providers, reporting test results with the patient, communication with other healthcare providers. [facility] Social History (Updated 05/19/21 @ 10:03 by Karen Gr) Housing: House (with parents and brother) Patient Tobacco Use Status: Never used Tobacco e-Cigarette/Vaping Use: Never Used Second Hand Smoke Exposure: No service: No Current occupational status: disabled Current occupational exposures/hazards: No Cognitive needs: Yes (Needs care 24/03) Hearing needs: No Vision needs: Yes (Having trouble finding eye doctor in the area. Lazy right eye.) Assessment & Plan Assessment & Plan (1) Bacterial conjunctivitis of left eye: Code(s): H10.9 - Unspecified conjunctivitis (2) Environmental allergies: Code(s): Z91.09 - Other allergy status, other than to drugs and biological substances (3) Cerebral palsy: Code(s): G80.9 - Cerebral palsy, unspecified Plan . Medications: New polymyxin B sulf-trimethoprim 10,000 unit- 1 mg/mL APPLY TO BOTH EYES while awake; do not exceed 6 doses in 24 hours 1 drp ophthalmic (eye) QID 5 days 10 mL 0RF Patient Instructions: Patient Instructions - Apply prescribed eye drops in both eyes four times daily for five days. - Maintain hand hygiene to prevent the spread of infection. - Administer Children's Benadryl as directed for allergies. - Consider switching to Zyrtec for further allergy control. - Monitor for any worsening symptoms or new developments. Put cold or warm wet cloths on your eye a few times a day if the eye hurts. Do not wear contact lenses or eye makeup until the pink eye is gone. Throw away any eye makeup you were using when you got pink eye. Clean your contacts and storage case. Wash bed linen after 24 hours of antibiotic eye drop use. Do not share eye drops. Use a clean towel to wash your face each day until symptoms are gone. This will help prevent recurrence. What is pink eye? Saticoy eye is a term people use to describe an infection or irritation of the eye. The medical term for pink eye is conjunctivitis. If you have pink eye, your eye (or eyes) might: ?Turn pink or red ?Weep or ooze a gooey liquid ?Become itchy or burn ?Get stuck shut, especially when you first wake up Saticoy eye can be caused by an infection, allergies, or an unknown irritation. Can you catch pink eye from someone else? Yes. When pink eye is caused by an infection, it can spread easily. Usually, people catch it from touching something that has been in contact with an infected person's eye. It can also be spread when an infected person touches someone else, and then that person touches their eye. If someone you know has pink eye, avoid touching their pillowcases, towels, or other personal items. When should I see a doctor or nurse? See your doctor or nurse if your eye hurts, or if you still have trouble seeing clearly after blinking. If you do not have these problems, but think you might have pink eye, your doctor or nurse might be able to give you advice over the p lyndon. Can pink eye be treated? Most cases of pink eye go away on their own without treatment. But some types of pink eye can be treated. When pink eye is caused by infection, it is usually caused by a virus, so antibiotics will not help. Still, pink eye caused by a virus can last several days. ?Saticoy eye caused by an infection with bacteria can be treated with antibiotic eye drops, gel, or ointment. ?Saticoy eye caused by other problems can be treated with eye drops normally used to treat allergies. These drops will not cure the pink eye, but they can help with itchiness and irritation. When using eye drops for infection, do not touch your healthy eye after touching your infected eye. Also, do not touch the bottle or dropper directly onto 1 eye and then use it in the other. These things can cause the infection to spread from 1 eye to the other. If your eyelids feel swollen, it might also help to hold a cool wet cloth on the area. What if I wear contact lenses? If you wear contact lenses and you have symptoms of pink eye, it is really important to have a doctor look at your eyes. In people who wear contacts, the symptoms of pink eye can be caused by corneal abrasion. Corneal abrasion is a scratch on the eye and can be a serious problem. During treatment for eye infections, you might need to stop wearing your contacts for a short time. If your contacts are disposable, throw them away and use new ones. If your contacts are not disposable, you need to carefully clean them. You should also throw away your contact lens case and get a new one. When can I go back to work or school? If you have pink eye caused by an infection, remember that it can spread very easily. The best way to avoid spreading it is to stay away from other people until you no longer have symptoms. If this is not possible, wash your hands often (figure 1). It's also important to avoid touching your eyes and sharing items that could spread the infection. Schools and day cares usually have rules about when a child with pink eye can return. If a child has a bacterial infection, they will probably need to stay home until they have gotten antibiotic eye drops or ointment for 24 hours. Can pink eye be prevented? To keep from getting or spreading pink eye caused by an infection: ?Wash your hands often with soap and water. ?Try not to touch your eyes. ?Avoid sharing towels, bedding, or other personal items with a person who has pink eye. If your pink eye is caused by allergies, it might help to stay inside with the windows shut as much as possible during peak allergy seasons. What problems should I watch for? Call your doctor or nurse if: ?You have trouble seeing clearly after blinking. ?Your eye is still red or has drainage after 3 days. ?You have eye pain that is getting worse. Coding Level of Care Code Est Pt Level 4 (63815) Diagnoses Bacterial conjunctivitis of left eye H10.9 Environmental allergies Z91.09 Cerebral palsy G80.9
[2025-02-12 09:49] VITALS: TEMP 36.2
--- OUTSIDE RECORDS SUMMARY | 2025-02-12 10:44 | XMS_ITS | Encounter Summary ---
Author Organization [facility] Address [address] [place] [phone] Phone Care Team Providers Care Farm Implement Mechanic Name Role Phone Alexus Johnson MD Primary Care Provider Encounter Details Date Type Department Care Team (Late st Contact Info) Description 04/13/2013 Documentation [facility] [place] Family Medicine [address] [place], [place] [phone] Family Medicine, Physician [address] [place], [place] [phone] Social History Tobacco Use Types Packs/Day Years [...] on filedocumented in this encounter Care Teams Farm Implement Mechanic Relationship Specialty Start Date End Date Alexus Johnson MD [address] [place] [address] [place] [id number] PCP - General 04/08/17 12/06/22 documented as of this encounter
== END 2025-02-12 10:16 | disposition home or self-care (01) ==
LOC: HO.HMCFM 09:43
PROVIDERS: PCP Family Medicine; Visit Provider Nurse Practitioner Family
DX: H10.9 Unspecified conjunctivitis (principal); Z91.09 Other allergy status, other than to drugs and biological substances; G80.9 Cerebral palsy, unspecified

== ENCOUNTER → 2025-02-12 09:42 | Outpatient (BNVA) | payer OTHER, SELFPAY | PROVIDERS: PCP Family Medicine; Visit Provider Nurse Practitioner Family | DX: H10.12 Acute atopic conjunctivitis, left eye (principal); G80.9 Cerebral palsy, unspecified; Z91.09 Other allergy status, other than to drugs and biological substances | CPT/HCPCS: 99212 ==

== ENCOUNTER 2025-07-24 08:25 | Outpatient (AMB) | payer OTHER, SELFPAY ==
--- NOTE | 2025-07-24 08:29 | MHC.PC.OV ---
Vital Signs 07/24/25 08:34 Height 4 ft 11 in BMI Reason not done Patient refused/unable BP not taken reason Patient Refused Intake Visit Reasons: Reschedule 6 mth f/u labs Intake Note: Leanna presents in the office today for a 6 month follow up for labs. Allergies No Known Allergies Allergy (Verified 07/24/25 08:32) Medication List - Last Reconciled 07/24/25 by Demetrius Cottrell MD glycerin (adult) (Fleet Glycerin (Adult) rectal suppository) 1 supp [place] DAILY PRN miscellaneous medical supply AFO, Bilateral, Daily As directed. 999 days. 1 Pair miscellaneous medical supply Wheelchair. Daily As directed. 999 days. polymyxin B sulf-trimethoprim 10,000 unit- 1 mg/mL 1 drp ophthalmic (eye) QID 5 days Tobacco use date assessed: 07/24/25 Dental Screening Dental Screen Date: 07/24/25 Did you have a dental visit in the last 12 months?: Yes Did you have a dental problem in the last 6 months where you did not have access to dental care?: No Was dental information given to patient?: Patient has dentist HPI Reschedule 6 mth f/u labs HPI Details 30 y/o female presents to f/u chronic conditions. Patient had had episodes of convulsion like activity. Was still responsive in tracking with her eyes Had referred her to Neurology. They do not feel that she is having epileptiform seizures. No recent labs to review. They note some menstural pain and request tylenol. [facility] Social History (Updated 07/24/25 @ 08:34 by Dolly Cheatham [facility]) Housing: House (with parents and brother) Alcohol intake: never Patient Tobacco Use Status: Never used Tobacco e-Cigarette/Vaping Use: Never Used Second Hand Smoke Exposure: No Use of substances other than those prescribed or required for medical reasons: No service: No Current occupational status: disabled Current occupational exposures/hazards: No Cognitive needs: Yes (Needs care 24/03) Hearing needs: No Vision needs: Yes (Having trouble finding eye doctor in the area. Lazy right eye.) Questionnaire Thrive Questionnaire Date Thrive assessed: 12/12/24 I am a: Patient What is your living situation today?: I have a steady place to live Within the past 12 months, did the food you bought not last and you didn't have the money to get more?: Never true Within the past 12 months, did you worry whether your food would run out before you got money to buy more?: Never true Do you have trouble paying for medicines?: No Do you have trouble getting transportation to medical appointments?: No Do you have trouble paying your heating and electricity bill?: No Do you have trouble taking care of your child, family member or friend?: I choose not to answer this question Do you have trouble with day-to-day activities such as bathing, preparing meals, shopping, managing finances, etc.?: I choose not to answer this question Are you currently unemployed and looking for a job?: I choose not to answer this question Are you interested in more education?: I choose not to answer this question Please select the resources that you would like help with: None Currently or been in a relationship where the following occur: No concerns reported THRIVE Score: 0 PAULINA-7 AMB Questionnaire PAULINA-7 Date PAULINA - 7 assessed: 12/17/24 Source: Developed by Drs. Slava Nesbitt, Alyx Barragan, Loyd Montesinos and colleagues, with an educational celso from [employer]. Review of Systems Const Denies chills, Denies fatigue, Denies fever(s), Denies headache(s) and Denies weakness ENT Denies dizziness and Denies headache(s) Card Denies dyspnea Resp Denies cough, Denies dyspnea, Denies wheezing and Denies other (shortness of breath) Musc Denies numbness and Denies tingling Neuro Denies dizziness, Denies headache(s), Denies numbness, Denies tingling and Denies weakness Psych Denies anxiety and Denies depression Endo Denies fatigue Aller/Immun Denies wheezing Physical exam (Primary Care) Tobacco/Smoking Status: Tobacco use Status Tobacco use date assessed 07/24/25 07/24/25 08:35 Patient Tobacco Use Status Never used Tobacco 07/24/25 08:34 e-Cigarette/Vaping Use Never Used 07/24/25 08:34 Thrive Assessment: Date of Thrive Assessment Date Thrive assessed 12/12/24 07/24/25 08:30 Currently or been in a relationship where the following occur: No concerns reported Const General: well developed; No acute distress Nutritional Appearance: well nourished Orientation/consciousness: patient oriented x3 HENMT Head: Yes normocephalic and Yes atraumatic Eyes General: appearance normal, both eyes and all related structures Pupils: Equal, round and reactive pupils present EOM: EOMs intact bilaterally Resp Effort & Inspection: normal respiratory effort Auscultation: clear to auscultation bilaterally Cardio Rate: regular rate Rhythm: regular rhythm Heart sounds: S1 normal heart sound present, S2 normal heart sound present, no gallops, no murmurs and no rubs Neuro General: patient oriented x3 and gait normal Cranial nerves: Yes Equal, round and reactive pupils present Psych Affect: normal affect Coding Level of Care Code Est Pt Level 4 (95279) Diagnoses Convulsions R56.9 Menstrual pain N94.6 Immunization counseling Z71.85 Nonverbal R47.01 Cerebral palsy G80.9 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 Was still responsive in tracking with her eyes Had referred her to Neurology. They do not feel that she is having epileptiform seizures. Had considered EEG but would require sedation which would alter results. This has beentabled for now. They recommended parents keep a symptom diary However, patient has had no further episodes. May be secondary to pain eg gastrointestinal pain/cramping menstrual cramping. (2) Menstrual pain: Code(s): N94.6 - Dysmenorrhea, unspecified Category: Medical Plan: Dad notes that she has changes in her behavior during menstrual cycles due to pain and discomfort. She can use Tylenol Send script (3) Immunization counseling: Code(s): Z71.85 - Encounter for immunization safety counseling Category: Medical Plan: Patient received flu shot (4) Nonverbal: Code(s): R47.01 - Aphasia Category: Medical (5) Cerebral palsy: Code(s): G80.9 - Cerebral palsy, unspecified Category: Medical (6) Spastic quadriplegia: Code(s): G82.50 - Quadriplegia, unspecified Category: Medical Plan 30-year-old female with cerebral palsy, developmental delay and spastic quadriplegia, nonverbal. Stable Continue current treatment regimen She will be due for lab work at next visit Medications: New acetaminophen 750 mg (22.5 mL) PO Q6H PRN 237 mL 3RF pain 90 days
--- OUTSIDE RECORDS SUMMARY | 2025-07-24 08:48 | XMS_ITS | Clinical Summary ---
Author Organization [facility] Address [address] [place] [address] Phone Care Team Providers Care Stock Handler Floorperson Name Role Phone Unavailable Primary Care Provider [...] history of Hyperlipidemia, Family history of Sudden /TN under age 55 Paternal Grandfather Buck naranjo [...] 81 12/26/2014 12:00 AM EDT Temperature 36.4 C (97.6 F) 03/11/2015 12:00 AM EDT Respiratory Rate - - Oxygen Saturation 97% [...] 09/20/1995, Additional history exists Influenza Vaccines (#1) 2025 06/27/20 14, 05/28/2013, 05/11/2012, Additional history exists COVID-19 Vaccine ( season) 2025 Hepatitis B Vaccines Completed 1994, 1994, 1994 [...]
--- OUTSIDE RECORDS SUMMARY | 2025-07-24 08:48 | XMS_ITS | Encounter Summary ---
Author Organization [facility] Address [address] [place] [address] Phone Care Team Providers Care Training Generalist Name Role Phone Alexus Johnson MD Primary Care Provider Encounter Details Date Type Department Care Team (Late st Contact Info) Description 06/28/2011 Documentation [facility] [place] [address] [place], [place] [phone] Family Medicine, Physician [address] [place], [place] [phone] Social History Tobacco Use Types Packs/Day Years [...] on filedocumented in this encounter Care Teams Training Generalist Relationship Specialty Start Date End Date Alexus Johnson MD [address] [place] [address] [place] [id number] PCP - General 04/08/17 12/06/22 documented as of this encounter
--- OUTSIDE RECORDS SUMMARY | 2025-07-24 08:48 | XMS_ITS | Encounter Summary ---
Author Organization [facility] Address [address] [place] [address] Phone Care Team Providers Care Associate Professor Of Violin Name Role Phone Alexus Johnson MD Primary Care Provider Encounter Details Date Type Department Care Team (Late st Contact Info) Description 10/29/2011 [place] [facility] [place] [address] [place], [place] [phone] Family Medicine, Physician [address] [place], [place] [phone] Social History Tobacco Use Types Packs/Day Years [...] on filedocumented in this encounter Care Teams Associate Professor Of Violin Relationship Specialty Start Date End Date Alexus Johnson MD [address] [place] [address] [place] [id number] PCP - General 04/08/17 12/06/22 documented as of this encounter
--- OUTSIDE RECORDS SUMMARY | 2025-07-24 08:48 | XMS_ITS | Encounter Summary ---
Author Organization [facility] Address [address] [place] [address] Phone Care Team Providers Care Pizza Baker Name Role Phone Alexus Johnson MD Primary Care Provider Encounter Details Date Type Department Care Team (Late st Contact Info) Description 04/14/2017 Conversion Encounter [facility] [place] [address] [place] [address] Social History Tobacco Use Types Packs/Day Years [...] on filedocumented in this encounter Care Teams Pizza Baker Relationship Specialty Start Date End Date Alexus Johnson MD [address] [place] [address] PCP - General 04/08/17 12/06/22 documented as of this encounter
--- OUTSIDE RECORDS SUMMARY | 2025-07-24 08:48 | XMS_ITS | Encounter Summary ---
Author Organization [facility] Address [address] [place] [address] Phone Care Team Providers Care Sea Foam Kiss Maker Name Role Phone Alexus Johnson MD Primary Care Provider Encounter Details Date Type Department Care Team (Late st Contact Info) Description 08/16/2012 [place] [facility] [place] [address] [place], [place] [phone] Family Medicine, Physician [address] [place], [place] [phone] Social History Tobacco Use Types Packs/Day Years [...] on filedocumented in this encounter Care Teams Sea Foam Kiss Maker Relationship Specialty Start Date End Date Alexus Johnson MD [address] [place] [address] [place] [id number] PCP - General 04/08/17 12/06/22 documented as of this encounter
--- OUTSIDE RECORDS SUMMARY | 2025-07-24 08:48 | XMS_ITS | Encounter Summary ---
Author Organization [facility] Address [address] [facility] [address] [place] [phone] Phone Care Team Providers Care Instrument Maker Apprentice Name Role Phone Rose Mary Maravilla MD Primary Care Provider + Trina Blake MD, MPH Primary Care Provid er Unknown, Unknown Primary Care Provider Demetrius Peña MD Primary Care Provider Reason for Referral * Physical Therapy - Closed Specialty Diagnoses / Procedures Referred By Contvic schmidt Referred To Contact Physical Therapy Diagnoses Encounter for rehabilitation System, Provider Not In, PhD [id number] [place] [address] Phone: tel: Referral ID Status Reason Start Date Expiration Date Visits Re quested Visits Authorized [id number] Closed 10/12/2017 08/28/2018 25 25 Encounter Details Date Type Department Care Team (Latest Contact Info) Description 09/15/2017 Transcribe Orders [facility] Rehabilitation Services [address] [place] [id number] Gabriella Pedraza, [address] [phone] Encounter for rehabilitation (Primary Dx) Social History Tobacco Use Types Packs/Day Years Used Date Smoking Tobacco: Never Assessed Comments Unknown Sex and Gender Information Value Date Recorded Sex Assigned at Not on file Legal Sex Female 8:55 PM EDT Gender Identity Not on file Sexual Orientation Not on file documented as of this encounter Plan of Treatment Not on file documented as of this encounter Procedures Procedure Name Priority Date/Time Associated Diagnosis Comments AMB REFERRAL TO [facility] PHYSICAL THERAPY Routine 10/24/2017 7:04 PM EST Encounter for rehabilitation documented in this encounter Results * Ambulatory referral to [facility] Physical Therapy (10/24/2017 7:04 PM EST) Provider Not In System PhD AMB [facility] REFERRALS Fin al Result documented in this encounter Visit Diagnoses Diagnosis Encounter for rehabilitation- Primary documented in this encounter Care Teams Instrument Maker Apprentice Relationship Specialty Start Date End Date Rose Mary Maravilla MD [address] [place] [address] PCP - General Internal Medicine 09/23/17 06/25/18 Trina Blake MD, MPH [address] [address] [email or web address] PCP - General Family Medicine 06/26/18 04/22/19 Unknown, MD Lloyd [address] [place] [id number] PCP - General 04/23/19 04/26/19 Demetrius Cottrell MD [address] [place] [phone] PCP - General 04/27/19 documented as of this encounter Additional Source Comments The information contained in this document represents components of the legal health record. It is not the complete legal health record.[facility]
--- OUTSIDE RECORDS SUMMARY | 2025-07-24 08:48 | XMS_ITS | Clinical Summary ---
Author Organization [facility] Address [address] [facility] [address] [place] [phone] Phone Care Team Providers Care Orthopedic Assistant Name Role Phone Demetrius Cottrell MD Primary Care Provider Social History Tobacco Use Types Packs/Day Years Used Date Smoking Tobacco: Never Assessed Education Answer Date Recorded Are you interested in more education? Not on leonardo e 12/24/2022 Are you concerned about learning? Not on file 12/24/2022 No 12/24/2022 No 12/24/2022 Digital Access Answer Date Recorded No 01/21/2023 No 01/21/2023 No 01/21/2023 Reliable internet access at home? Not on file 01/21/2023 Device with a working camera? Not on file Comments Unknown Sex and Gender Information Value Date Recorded Sex Assigned at Not on file Legal Sex Female 8:55 PM EDT Gender Identity Not on file Sexual Orientation Not on file Plan of Treatment Health Maintenance Due Date Last Done Comments DEPRESSION SCREENING 2006 SMOKING Hx and SMOKELESS TOBACCO SCREENING 2007 HEPATITIS C SCREENING 2012 HIV ONE-TIME SCREENING (18-65 YEARS) 2012 PAP SMEAR 2015 INFLUENZA VACCINE (#1) 2025 9, 06/06/2019, 05/31/2018, Additional history exists COVID-19 VACCINE ( season) 2025 12/11/2020, 11/20/2020 Adult Td,Tdap Booster 03/29/2026 03/29/2016 , 11/21/2015, 07/15/2006 HIB VACCINES Completed 06/22/1995, 08/31, 1994, Additional history exists HEPATITIS A VACCINES Aged Out 11/21/2015, 12/26/2014, 12/26/2014 No longer eligible based on patient's age to complete this topic MENINGOCOCCAL VACCINES (ACWY) Aged Out 11/21/2015, 02/17/2007, 02/17/2007 No longer eligible based on patient's age to complete this topic MENINGOCOCCAL VACCINES (B) Aged Out N o longer eligible based on patient's age to complete this topic PNEUMOCOCCAL VACCINES (0-49 years) Aged Out No longer eligible based on patient's age to complete this topic Medical Devices Not on file Insurance [facility] [place] [address] Care Teams Orthopedic Assistant Relationship Specialty Start Date End Date Demetrius Cottrell MD PCP - General 04/27/19 Additional Source Comments The information contained in this document represents components of the legal health record. It is not the complete legal health record.[facility]
--- OUTSIDE RECORDS SUMMARY | 2025-07-24 08:48 | XMS_ITS | Encounter Summary ---
Author Organization [facility] Address [address] [place] [phone] Phone Care Team Providers Care Gifted Program Teacher Name Role Phone Alexus Johnson MD Primary Care Provider Encounter Details Date Type Department Care Team (Late st Contact Info) Description 04/13/2013 Documentation [facility] Family Medicine [address] [place], [place] [phone] Family Medicine, Physician [address] [place], [place] [phone] Social History Tobacco Use Types Packs/Day Years [...] on filedocumented in this encounter Care Teams Gifted Program Teacher Relationship Specialty Start Date End Date Alexus Johnson MD [address] [place] [address] [place] [phone] PCP - General 04/08/17 12/06/22 documented as of this encounter
--- OUTSIDE RECORDS SUMMARY | 2025-07-24 08:48 | XMS_ITS | Encounter Summary ---
Author Organization [facility] Address [address] [facility] [address] [place] [phone] Phone Care Team Providers Care Technical Marketing Engineer Name Role Phone Trina Blake MD, MPH Primary Care Provid er Unknown, Unknown Primary Care Provider Demetrius Peña MD Primary Care Provider Reason for Referral * Speech Therapy (Routine) - Closed Specialty Diagnoses / Procedures Referred By Minerva schmidt Referred To Contact Speech Pathology Diagnoses Encounter for rehabilitation Cerebrall Palsy Oropharyngeal Dysphagia System, Provider Not In, PhD Partners [phone] [place] [phone] Phone: tel: Referral ID Status Reason Start Date Expiration Date Visits Re quested Visits Authorized [id number] Closed 08/16/2018 06/12/2019 13 13 Encounter Details Date Type Department Care Team (Latest Contact Info) Description 08/16/2018 Transcribe Orders [facility] Rehabilitation Services [address] [place] [address] Trina Blake MD, MPH [address] [facility] [address] [place] [address] [email or web address] Encounter for rehabilitation (Primary Dx) Social History [...] Date/Time Associated Diagnosis Comments AMB REFERRAL TO [facility] SPEECH AND LANGUAGE PATHOLOGY Routine 08/17/2018 12:51 PM EST Encounter for rehabilitation documented in this encounter Results * Ambulatory referral to [facility] Speech Language Pathology (08/17/2018 12:51 PM EST) us Provider Not In System PhD AMB [facility] REFERRALS Fin al Result documented in this encounter Visit Diagnoses Diagnosis Encounter for rehabilitation- Primary documented in this encounter Care Teams Technical Marketing Engineer Relationship Specialty Start Date End Date Trina Blake MD, MPH [address] [place] [phone] [email or web address] PCP - General Family Medicine 06/26/18 04/22/19 Unknown, MD Lloyd [address] [place] [phone] PCP - General 04/23/19 04/26/19 Demetrius Cottrell MD [address] [place] [phone] PCP - General 04/27/19 documented as of this encounter Additional Source Comments The information contained in this document represents components of the legal health record. It is not the complete legal health record.[facility]
--- OUTSIDE RECORDS SUMMARY | 2025-07-24 08:48 | XMS_ITS | Encounter Summary ---
Author Organization [facility] Address [address] [place] [phone] Phone Care Team Providers Care Care Transition Mgr Name Role Phone Alexus Johnson MD Primary Care Provider Encounter Details Date Type Department Care Team (Late st Contact Info) Description 04/13/2013 Documentation [facility] Family Medicine [address] [place], [place] [phone] Family Medicine, Physician [address] [place], [place] [phone] Social History Tobacco Use Types Packs/Day Years [...] on filedocumented in this encounter Care Teams Care Transition Mgr Relationship Specialty Start Date End Date Alexus Johnson MD [address] [place] [address] [place] [phone] PCP - General 04/08/17 12/06/22 documented as of this encounter
== END 2025-07-24 09:52 | disposition home or self-care (01) ==
LOC: HO.HMCFM 08:26
PROVIDERS: PCP Family Medicine; Visit Provider Family Medicine
DX: R56.9 Unspecified convulsions (principal); N94.6 Dysmenorrhea, unspecified; Z71.85 Encounter for immunization safety counseling; R47.01 Aphasia; G80.9 Cerebral palsy, unspecified; G82.50 Quadriplegia, unspecified

== ENCOUNTER → 2025-07-24 08:25 | Outpatient (BNVA) | payer OTHER, SELFPAY | PROVIDERS: PCP Family Medicine; Visit Provider Family Medicine | DX: G80.0 Spastic quadriplegic cerebral palsy (principal); R56.9 Unspecified convulsions; N94.6 Dysmenorrhea, unspecified; R47.01 Aphasia; Z71.85 Encounter for immunization safety counseling | CPT/HCPCS: 99212 ==